=== PATIENT | female | born 1940 | race Caucasian/White ===

== ENCOUNTER 2018-02-16 12:23 | Emergency (ER) | payer MEDICARE ==
[~2018-02-16] VITALS: Ht 165.1 cm; Wt 95.4 kg
[~2018-02-16 12:23] MED LIST: CIPROFLOXACN500 MG PO; PYRIDIUM200 MG PO; ZITHROMAX250 MG PO; ZOFRAN ODT4 MG PO
[2018-02-16] MEDS ORDERED: JANUVIA25 MG PO (12:40)
[2018-02-16] MEDS ORDERED: ACTOS15 MG PO (12:40)
[2018-02-16] MEDS ORDERED: FARXIGA5 MG (12:41)
[2018-02-16] MEDS ORDERED: ACCUPRIL5 MG PO (12:41)
[2018-02-16] MEDS ORDERED: LANTUS100 UNIT/M (12:41)
[2018-02-16] MEDS ORDERED: OMEPRAZOLE10 MG PO (12:42)
[2018-02-16 13:58] LABS: HEMATOCRIT 41.9 % (37.0-47.0); HEMOGLOBIN 13.1 g/dl (12.0-16.0); IMMATURE GRANULOCYTES 0.9 % (0.0-5.0); MEAN CELL VOLUME 89.7 fL CALC (80.0-100.0); MEAN CORPUSCULAR HGB 28.1 pG CALC (26.0-32.0); MEAN CORPUSCULAR HGB CONC 31.3 g/L CALC (32.0-36.0); NEUT# 4.14 thou/uL (2.00-7.15); RED BLOOD COUNT 4.67 mill/uL (4.20-5.60); RED CELL DISTRI WIDTH 14.6 % (11.5-15.5)
[2018-02-16 14:34] LABS: ANION GAP 16 (6-22 (CALC)); BUN 41 mg/dL (8-23); BUN/CREATININE RATIO 41 (12-20 (CALC)); CARBON DIOXIDE 21 mmol/l (22-30); CHLORIDE 107 mmol/l (95-108); GFR 54 ML/MIN (>=60 (CALC)); GFR FOR AFR.AMER. > 60 ML/MIN (>=60 (CALC)); POTASSIUM 4.6 mmol/l (3.5-5.1); SODIUM 140 mmol/l (137-146)
[2018-02-16] MEDS ORDERED: DOXYCYC MONO100 M1 PO (14:43)
[2018-02-16] MEDS ORDERED: PREDNISONE50 MG PO (14:43)
[2018-02-16] MEDS ORDERED: PROAIR HFA108 MCG/AC PO (14:43)
[2018-02-16 15:00] VITALS: BP 119/60
== END 2018-02-16 15:00 | disposition home or self-care (01) ==
LOC: ED 12:23
PROVIDERS: Family Medicine
DX: J20.9 Acute bronchitis, unspecified (principal); E11.9 Type 2 diabetes mellitus without complications; I10 Essential (primary) hypertension